=== PATIENT | female | born 1960 | race Caucasian/White ===

== ENCOUNTER 2016-11-14 15:49 | Emergency (ER) | payer OTHER ==
[~2016-11-14] VITALS: Ht 157.5 cm; Wt 61.9 kg
[~2016-11-14 15:49] MED LIST: CIPR-255 PO
[2016-11-14 16:28] VITALS: TEMP 36.5; Ht 157.5 cm; Wt 61.9 kg
[2016-11-14] MEDS ORDERED: PROMETHAZINE HCL INJ 6.25 MG in SODIUM CHLORIDE 0.9% 50ML 50 ML IV STA (18:10)
[2016-11-14] MEDS ORDERED: ONDANSETRON INJ 2 MG/ML 2 ML VIAL IV STA (18:10)
[2016-11-14] MEDS ORDERED: SODIUM CHLORIDE 0.9% 1000ML 1,000 ML IV STA (18:10)
[2016-11-14] MEDS ORDERED: MECLIZINE HCL 25 MG TAB PO STA (18:10)
[2016-11-14 18:41] LABS: BASO % 0.4 %; BASO ABS # 0.03 K/uL (0-0.2); BUN/CREATININE RATIO 16.4 (10-20); CALCIUM 9.1 mg/dl (8.5-10.1); COMPLETE YES; CREATININE 0.73 mg/dl (0.60-1.20); EOS % 0.5 %; IG% 0.3 %; LYMPH % 12.5 %; LYMPH ABS # 0.91 K/uL (1.2-3.4); MEAN CELL VOLUME 92.3 fL (80-100); MEAN CORPUSCULAR HEMOGLOBIN 31.4 pg (25-34); MEAN PLATELET VOLUME 9.1 fL (7.4-10.4); MONO % 5.1 %; NEUT % 81.2 %; PLATELET COUNT 331 K/uL (130-400); POTASSIUM 4.1 mmol/L (3.5-5.1); RED BLOOD COUNT 4.55 M/uL (4.2-5.4); WHITE BLOOD COUNT 7.28 K/uL (4.8-10.8)
[2016-11-14 18:52] LABS: ALB/GLOB RATIO 1.2 (0.9-2); THYROID STIMULATING HORMONE 0.655 uIu/ml (0.300-4.500)
--- NOTE | 2016-11-14 19:13 | DIAGNOSTIC IMAGING REPORT ---
HEAD CT NONCONTRAST CT DOSE: 638.56 mGycm HISTORY: Mental status change EVALUATE ALTERED MENTAL STATUS/WEAKNESS TECHNIQUE: Multiaxial CT images of the head were performed without the use of intravenous contrast. Comparison: None. Findings: The paranasal sinuses and mastoid air cells are clear. The calvarium and skull base are intact. The ventricles and sulci are within normal limits. There is no mass, hematoma, midline shift, or acute infarct. Impression: No acute intracranial abnormality. Electronically signed by: Cem Carvalho M.D. 11/14/2016 7:12 PM Dictated Date/Time: 11/14/2016 7:11 PM
[2016-11-14 19:26] LABS: URINE APPEARANCE CLEAR (CLEAR); URINE BILIRUBIN NEG (NEG); URINE COLOR YELLOW; URINE EPITHELIAL CELL AUTO >30 /lpf (0-5); URINE NITRITE NEG (NEG); URINE SPECIFIC GRAVITY 1.025 (1.000-1.030); UROBILINOGEN NEG (NEG); ZZUR CULT IF INDIC CLEAN CATCH YES
[2016-11-14 19:30] LABS: MANUAL MICROSCOPIC REQUIRED? NO; REVIEW REQ? NO
[2016-11-14] MEDS ORDERED: MECLIZINE HCL 25MG HOME PACK PO ONE (20:15)
[2016-11-14] MEDS ORDERED: ONDANSETRON HOME PACK 4MG OD TAB PO ONE (20:15)
[2016-11-14] MEDS ORDERED: ANT25 PO (20:17)
[2016-11-14] MEDS ORDERED: ONDA4TAB10 SL (20:17)
[2016-11-14 20:50] VITALS: BP 152/91; PULSE 78; O2SAT 99
--- NOTE | 2016-11-15 00:18 | EMERGENCY ROOM VISIT NOTE ---
History Report prepared by Aris: Erlinda Moser Under the Supervision of: Dr. Moises Hearn M.D. First contact with patient: 18:00 Chief Complaint: DIZZY Stated Complaint: DIZZY, NAUSEA Nursing Triage Summary: pt states she has dizziness with n/v started this morning at 5am pt hx breast ca History of Present Illness The patient is a 56 year old female who presents to the Emergency Room with complaints of constant dizziness beginning 12 hours prior to arrival. She describes the sensation as the room is spinning. Her symptoms worsen with movement and turning of the head. The patient states that she woke up with the dizziness and tried to go back to sleep but felt nauseous. She then had multiple episodes of vomiting. She notes that she went to open the window and that did help her symptoms slightly. The patient and her daughter called 911 for them to check for a gas leak in the house, no leak was found. She notes that she got up and was feeling better when she laid back down and the symptoms came over her again. She had many more vomiting episodes and sensations that the room was spinning. She notes that she has been under a lot of stress lately. The patient denies weakness, chest pain, recent illness, trauma to head , fall, diarrhea, urinary symptoms, or headache. Source of History: patient Onset: 12 hours [employer]IL P[employer] Position: other (global) Quality: other (dizziness) Timing: constant Associated Symptoms: + nausea, + vomiting, No chest pain, No diarrhea, No headache, No urinary symptoms Review of Systems See HPI for pertinent positives & negatives. A total of 10 systems reviewed and were otherwise negative. Past Medical & Surgical Medical Problems: (1) History of breast cancer Family History Cancer Social History Smoking Status: Never Smoker Smokeless Tobacco Use: No Marital Status: Housing Status: lives with family Current/Historical Medications Scheduled Meclizine HCl (Meclizine HCl), 1 TAB PO Q6H Ondasetron Odt (Zofran Odt), 4 MG SL Q6H Allergies Coded Allergies: No Known Allergies (Unverified , 05/04/16) Physical Exam Vital Signs Date Time Temp Pulse Resp B/P Pulse Ox O2 Delivery O2 Flow Rate FiO2 11/14/16 20:50 78 20 152/91 99 Room Air 11/14/16 20:50 79 20 152/91 99 11/14/16 19:40 76 20 173/82 99 Room Air 11/14/16 16:28 36.5 82 18 147/93 98 Room Air Physical Exam GENERAL: Patient is in no acute distress. HEENT: No acute trauma, normocephalic atraumatic, no nystagmus, mucous membranes moist, no nasal congestion, no scleral icterus, pupils equal round and reactive to light. NECK: No stridor, no adenopathy, no meningismus, trachea is midline. LUNGS: Clear to auscultation bilaterally, no wheeze, no rhonchi, breath sounds equal. HEART: Without murmurs gallops or rubs, regular rate and rhythm. ABDOMEN: Soft, nontender, bowel sounds positive, no hernias, no peritonitis. EXTREMITIES: No cyanosis or edema, full range of motion of all the joints without pain or difficulty, no signs for acute trauma. NEUROLOGIC: Oriented x 3, no acute motor or sensory deficits, no focal weakness. No pronator drift or cerebellar dysfunction. SKIN: No rash, no jaundice, no diaphoresis. Medical Decision & Procedures ER Provider Diagnostic Interpretation: EKG shows a normal sinus rhythm, the rate is 70, there is no acute ischemia, no ectopy. CT results as stated below per my review and radiologist interpretation: HEAD CT NONCONTRAST CT DOSE: 638.56 mGycm HISTORY: Mental status change EVALUATE ALTERED MENTAL STATUS/WEAKNESS TECHNIQUE: Multiaxial CT images of the head were performed without the use of intravenous contrast. Comparison: None. Findings: The paranasal sinuses and mastoid air cells are clear. The calvarium and skull base are intact. The ventricles and sulci are within normal limits. There is no mass, hematoma, midline shift, or acute infarct. Impression: No acute intracranial abnormality. Electronically signed by: Cem Carvalho M.D. 11/14/2016 7:12 PM Dictated Date/Time: 11/14/2016 7:11 PM Laboratory Results 11/14/16 18:00 Red Blood Count 4.55, Mean Corpuscular Volume 92.3, Mean Corpuscular Hemoglobin 31.4, Mean Corpuscular Hemoglobin Concent 34.0, Mean Platelet Volume 9.1, Neutrophils (%) (Auto) 81.2, Lymphocytes (%) (Auto) 12.5, Monocytes (%) (Auto) 5.1, Eosinophils (%) (Auto) 0.5, Basophils (%) (Auto) 0.4, Neutrophils # (Auto) 5.91, Lymphocytes # (Auto) 0.91, Monocytes # (Auto) 0.37, Eosinophils # (Auto) 0.04, Basophils # (Auto) 0.03 11/14/16 18:00 Test 11/14/16 18:00 11/14/16 19:05 White Blood Count 7.28 K/uL (4.8-10.8) Red Blood Count 4.55 M/uL (4.2-5.4) Hemoglobin 14.3 g/dL (12.0-16.0) Hematocrit 42.0 % (37-47) Mean Corpuscular Volume 92.3 fL (80-100) Mean Corpuscular Hemoglobin 31.4 pg (25-34) Mean Corpuscular Hemoglobin Concent 34.0 g/dl (32-36) Platelet Count 331 K/uL (130-400) Mean Platelet Volume 9.1 fL (7.4-10.4) Neutrophils (%) (Auto) 81.2 % Lymphocytes (%) (Auto) 12.5 % Monocytes (%) (Auto) 5.1 % Eosinophils (%) (Auto) 0.5 % Basophils (%) (Auto) 0.4 % Neutrophils # (Auto) 5.91 K/uL (1.4-6.5) Lymphocytes # (Auto) 0.91 K/uL (1.2-3.4) Monocytes # (Auto) 0.37 K/uL (0.11-0.59) Eosinophils # (Auto) 0.04 K/uL (0-0.5) Basophils # (Auto) 0.03 K/uL (0-0.2) RDW Standard Deviation 45.5 fL (36.4-46.3) RDW Coefficient of Variation 13.5 % (11.5-14.5) Immature Granulocyte % (Auto) 0.3 % Immature Granulocyte # (Auto) 0.02 K/uL (0.00-0.02) Anion Gap 9.0 mmol/L (3-11) Est Creatinine Clear Calc Drug Dose 75.4 ml/min Estimated GFR () 107.5 Estimated GFR (Non- 92.7 BUN/Creatinine Ratio 16.4 (10-20) Calcium Level 9.1 mg/dl (8.5-10.1) Total Bilirubin 0.7 mg/dl (0.2-1) Aspartate Amino Transf (AST/SGOT) 12 U/L (15-37) Alanine Aminotransferase (ALT/SGPT) 21 U/L (12-78) Alkaline Phosphatase 70 U/L (45-117) Total Protein 8.1 gm/dl (6.4-8.2) Albumin 4.4 gm/dl (3.4-5.0) Globulin 3.7 gm/dl (2.5-4.0) Albumin/Globulin Ratio 1.2 (0.9-2) Thyroid Stimulating Hormone (TSH) 0.655 uIu/ml (0.300-4.500) Urine Color YELLOW Urine Appearance CLEAR (CLEAR) Urine pH 6.0 (4.5-7.5) Urine Specific [employer] 1.025 (1.000-1.030) Urine Protein NEG (NEG) Urine Glucose (UA) NEG (NEG) Urine Ketones 2+ (NEG) Urine Occult Blood NEG (NEG) Urine Nitrite NEG (NEG) Urine Bilirubin NEG (NEG) Urine Urobilinogen NEG (NEG) Urine Leukocyte Esterase SMALL (NEG) Urine WBC (Auto) 1-5 /hpf (0-5) Urine RBC (Auto) 0-4 /hpf (0-4) Urine Hyaline Casts (Auto) 1-5 /lpf (0-5) Urine Epithelial Cells (Auto) >30 /lpf (0-5) Urine Bacteria (Auto) 1+ (NEG) Laboratory results reviewed by me. Medications Administered Medications (Trade) Dose Ordered Sig/Santy Route Start Time Stop Time Status Last Admin Dose Admin Sodium Chloride (Nss 1000ml) 1,000 ml @ 999 mls/hr Q1H1M STAT IV 11/14/16 18:10 11/14/16 19:10 DC 11/14/16 18:41 999 MLS/HR Meclizine HCl 25 mg 25 mg NOW STAT PO 11/14/16 18:10 11/14/16 18:12 DC 11/14/16 18:41 25 MG Promethazine HCl/ Sodium Chloride (Phenergan Inj/ Nss 50ml) 50.25 ml @ 204 mls/hr NOW STAT IV 11/14/16 18:10 11/14/16 18:24 DC 11/14/16 19:38 204 MLS/HR Ondansetron HCl (Zofran Inj) 4 mg NOW STAT IV 11/14/16 18:10 11/14/16 18:12 DC 11/14/16 18:41 4 MG Meclizine HCl (Antivert 25MG Home Pack) 1 homepack UD ONCE PO 11/14/16 20:15 11/14/16 20:16 DC 11/14/16 20:48 1 HOMEPACK Ondansetron HCl (ZOFRAN ODT 4MG Home Pack) 1 homepack UD ONCE PO 11/14/16 20:15 11/14/16 20:16 DC 11/14/16 20:48 1 HOMEPACK ED Course 1801: The patient was evaluated in room B8. A complete history and physical exam was performed. 1809: Zofran Inj 4 mg IV, Promethazine HCl 6.25 mg/ Sodium Chloride 50.25 ml @ 204 mls/hr IV, Antivert Tab 25 mg PO, Sodium Chloride 1,000 ml @ 999 mls/hr IV. 2010: I reevaluated the patient. 2015: Zofran ODT 4 mg Home Pack 1 homepack PO, Antivert 25 mg Home Pack 1 homepack PO. 2019: Reevaluated the patient. Discussed results and discharge instructions: she verbalized understanding and agreement. The patient is ready for discharge. Medical Decision The patient is a 56 year old female who presents to the ED with complaints of dizziness. Differential diagnoses considered include vertigo, electrolyte imbalance, anemia, UTI, intracranial bleeding or mass, dehydration. There is no leukocytosis or concerning anemia. No significant electrolyte abnormality, kidney failure or hepatitis. Urinalysis does not show infection, some dehydration though was noted on the urine testing. Brain CT shows no acute bleed or mass effect. EKG shows a sinus rhythm, no acute ischemia. The patient appears to be in a euthyroid state. On my exam, there were no focal neurologic deficits. The patient was not toxic or febrile. Patient received IV saline, oral meclizine. She was given IV Zofran and IV Phenergan. She feels improved. The patient's presentation is consistent with vertigo. Her workup is benign, she is being discharged home with meclizine and Zofran. If worsening, she can return. Impression Primary Impression: Vertigo Additional Impression: Dehydration Scribe Attestation The scribe's documentation has been prepared under my direction and personally reviewed by me in its entirety. I confirm that the note above accurately reflects all work, treatment, procedures, and medical decision making performed by me. Departure Information Dispostion Home / Self-Care Prescriptions Ondasetron Odt (ZOFRAN ODT) 4 Mg Tab 4 MG SL Q6H for Nausea, #12 TAB Prov: Moises Hearn M.D. 11/14/16 Meclizine HCl (Meclizine HCl) 25 Mg Tab 1 TAB PO Q6H, #15 TAB Prov: Moises Hearn M.D. 11/14/16 Referrals Isidro Vasquez M.D. (PCP) Forms HOME CARE DOCUMENTATION FORM, IMPORTANT VISIT INFORMATION, Work Instructions Patient Instructions My [facility] Additional Instructions rest fluids zofran 1-2 tab every 6 hours for nausea meclizine 1 tab every 6 hours for vertigo symptoms see eladio neri later this week for a recheck lab testing today and imaging was ok return if worsening as we discussed Problem Qualifiers
== END 2016-11-14 20:52 | disposition home or self-care (01) ==
LOC: C.EDB 15:51
DX: R42 Dizziness and giddiness (principal); E86.0 Dehydration; Z85.3 Personal history of malignant neoplasm of breast

== ENCOUNTER → 2017-12-12 | Outpatient (CLI) | payer OTHER ==
[~2017-12-12] MED LIST changes: +ANT25 PO; -CIPR-255 PO
--- NOTE | 2017-12-13 08:02 | MAMMOGRAPHY REPORT ---
BILATERAL DIGITAL SCREENING MAMMOGRAM TOMOSYNTHESIS WITH CAD: 12/12/2017 CLINICAL HISTORY: Asymptomatic. Personal history of breast cancer. TECHNIQUE: Breast tomosynthesis in addition to standard 2D mammography was performed. Current study was also evaluated with a Computer Aided Detection (CAD) system. COMPARISON: Comparison is made to exams dated: 10/13/2015 mammogram, 07/15/2014 mammogram, 04/24/2016 ul trasound, 04/24/2016 mammogram, 10/25/2015 mammogram, and 10/25/2015 ultrasound - [facility]. BREAST COMPOSITION: The tissue of both breasts is heterogeneously dense, which may obscure small mas ses. FINDINGS: There are stable postsurgical changes in the upper outer posterior right breast, with expec peterson architectural distortion and surgical clips in place. No new suspicious mass, architectural dist ortion or cluster of microcalcifications is seen. IMPRESSION: ACR BI-RADS CATEGORY 1: NEGATIVE There is no mammographic evidence of malignancy. A 1 year screening mammogram is recommended. The pa tient will receive written notification of the results. Approximately 10% of breast cancers are not detected with mammography. A negative mammographic report should not delay biopsy if a clinically suggestive mass is present. Abbey Dominguez M.D. ay/:12/12/2017 15:44:20 Package Sorter: Mitzy DE LUNA)(Marissa), [facility] letter sent: Normal 1/2 BI-RADS Code: ACR BI-RADS Category 1: Negative
== END | disposition home or self-care (01) ==
LOC: C.MAMM 13:42
PROVIDERS: ATTEND Internal Medicine Geriatric Medicine
DX: Z12.31 Encounter for screening mammogram for malignant neoplasm of breast (principal); Z85.3 Personal history of malignant neoplasm of breast